=== PATIENT | female | born 1970 | race Caucasian/White ===

== ENCOUNTER 2023-09-10 19:23 | Emergency (ER) | payer SELFPAY ==
[2023-09-10 19:24] VITALS: BMI 21.5
[2023-09-10 19:28] VITALS: BP 103/71
[2023-09-10 19:51] LABS: Glucose - Point of Care 167 mg/dl (70-99)
[2023-09-10 22:36] LABS: Glucose - Point of Care 114 mg/dl (70-99)
--- NOTE | 2023-09-10 22:36 | ED.GENMED ---
History of Present Illness
General
Chief Complaint: Alcohol Problem
Time Seen by Provider: 09/10/23 19:42
Travel History
Have you had any contact with someone who has COVID-19?: Unable to Answer
Do you have any symptoms of coronavirus? Fever > 100 degrees, chills, cough, shortness of breath, sore throat, loss of taste or smell, muscle aches, or headache?: Unable to Answer
History of Present Illness
History of Present Illness:
53-year-old female with history of insulin-dependent diabetes and alcohol abuse presents via EMS due to alcohol intoxication. She apparently was found by a friend sleeping in the backseat of her car and was difficult to arouse thus 9 1 was called.
Patient is argumentative on arrival, has a strong odor of alcohol. She is generally not cooperative and repeatedly refuses to allow us to examine her or assess her. She does admit to alcohol use.
Review of Systems
Review of Systems
Allergies reviewed?: Yes
All Other Systems: ROS reviewed and negative except as documented in HPI and ROS
Phy Exam
Physical Exam
Physical Exam:
GEN: Well appearing, NAD, WDWN
HEENT: Oral mucosa moist, no scleral icterus
Cardiac: Regular rate
Lung: No respiratory distress, no tachypnea
MSK: No gross deformity or injuries
Skin: Good color, no pallor or jaundice, no rashes
Neuro: AO x3, moves all extremities freely, slurred speech
Psych: Calm, cooperative
Scores
Withdrawal Assessment of Alcohol
Withdrawal Assessment Completed?: Not applicable
Course
Orders/Labs/Results
Orders:
Abnormal Lab Results
09/10/23 09/10/23
19:49 22:35
POC Glucose 167 H mg/dl 114 H mg/dl
(70-99) (70-99)
Vital Signs
Initial and Last Documented VS:
Initial Vital Signs
Temp Pulse Resp BP Pulse Ox
97.9 F 71 14 103/71 97
09/10/23 19:28 09/10/23 19:28 09/10/23 19:28 09/10/23 19:28 09/10/23 19:28
Last Documented Vital Signs
Temp Pulse Resp BP Pulse Ox
97.9 F 71 14 103/71 97
09/10/23 19:28 09/10/23 19:28 09/10/23 19:28 09/10/23 19:28 09/10/23 19:28
MDM/Problems Addressed
MDM/Problems Addressed:
Patient will be observed until sobriety from a clinical standpoint. Accu-Chek was monitored in the emergency department, she did gradually downtrend to below 100 thus was given orange juice orally and tolerated this well. As of 3 AM the patient is
much more alert and conversant, states she does not have a ride home and will call someone later in the morning because she feels her boyfriend is 'drunk'. No indication for labs.
*Critical Care Note
Total Time (30-74mins, 75-104mins- exclusive of procedures): Not Applicable
ED Attending Note
-
Portions of this chart may have been created with voice recognition software.� Occasional wrong word or��sound alike� substitutions may have occurred due to the inherent limitations of voice recognition software.
Discharge Plan
Departure
Patient Disposition: Home (Routine Discharge)
Date of Disposition: 09/11/23
Time of Disposition: 03:05
Patient with high blood pressure during this ER visit?: No
Discharge Problem:
Alcohol intoxication
Instructions: Alcohol Use Disorder (DC)
Prescriptions:
No Action
cyclobenzaprine 10 mg Tablet
10 mg PO BID
carvedilol 3.125 mg Tablet
3.125 mg PO DAILY
alprazolam 0.5 mg Tablet
0.5 mg PO BID PRN (Reason: anxiety)
magnesium oxide [MagOx] 400 mg (241.3 mg magnesium) Tablet
400 mg PO BID
insulin lispro [Humalog KwikPen Insulin] 100 unit/mL Insulin Pen
20 unit SC TID
duloxetine 60 mg Capsule,Delayed Release(Dr/Ec)
60 mg PO DAILY
pregabalin 150 mg Capsule
150 mg PO BID
Linzess 290 mcg Capsule
290 mcg PO DAILY
Lyumjev KwikPen U-100 Insulin 100 unit/mL Insulin Pen
1 sliding scale dose SC DIRECTED
Referrals:
UNKNOWN - PT DOES,NOT KNOW [Family Provider] -
Interventions
Interventions:
*Risk Screen - Suicide Last Done: 09/10/23 19:28
*General Assessment Last Done: 09/10/23 19:28
*Neglect/Abuse Screening Last Done: 09/10/23 19:28
ED- Fall Risk Assessment Last Done: 09/10/23 19:42
*ED COVID-19 Vaccine History Last Done: 09/10/23 19:42
ED- Neurological Assessment Last Done: 09/10/23 19:42
ED-Psychological Assessment Last Done: 09/10/23 19:42
[2023-09-11 00:50] LABS: Glucose - Point of Care 93 mg/dl (70-99)
== END 2023-09-11 05:52 | disposition home or self-care (01) ==
LOC: EMR 19:23
PROVIDERS: EMERGENCY PHYSICIAN Emergency Medicine
DX: F10.129 Alcohol abuse with intoxication, unspecified (principal); E11.9 Type 2 diabetes mellitus without complications
CPT/HCPCS: 99282; 82962